=== PATIENT | male | born 1985 | race Caucasian/White ===

== ENCOUNTER 2021-04-04 08:34 | Emergency (ER) | payer SELFPAY ==
[~2021-04-04] VITALS: Ht 193 cm; Wt 90.7 kg
[2021-04-04] MEDS ORDERED: FAMOTIDINE. 20 MG/2 ML VIAL IV ONE ×2 (08:45→08:57)
[2021-04-04] MEDS ORDERED: ONDANSETRON 4 MG/2 ML VIAL IV ONE ×2 (08:45→09:30)
[2021-04-04] MEDS ORDERED: IV NORMAL SALINE 1000 ML BAG IV ONE (08:45)
[2021-04-04] MEDS ORDERED: KETOROLAC TROMETHAMINE 15 MG INJ IVP ONE (08:45)
[2021-04-04] MEDS ORDERED: ONDANSETRON 4 MG/2 ML VIAL ONE ×2 (08:56→09:27)
[2021-04-04] MEDS ORDERED: KETOROLAC TROMETHAMINE 15 MG INJ ONE (08:56)
--- NOTE | 2021-04-04 09:01 | NUR ---
Pt brought down to CT via gurney accompanied by fiberglass autobody repairer. Pt NAD VSS RA, Pt reports intolerable pain. pt reports nausea, no emesis. able to change into hospital gown, ambulatory with stable gait. SRx2 up. bed at lowest position.
--- NOTE | 2021-04-04 09:15 | NUR ---
Pt is back from CT via gurney, accompanied by waste management recycling technician. NAD VSS RA resting comfortably with IVF infusing well to LAC G20 srx2 up with bed at lowest position monitored accordingly
[2021-04-04 09:19] LABS: BASOPHILS % (AUTO) 0.5 % (0.0-2.0); EOSINOPHILS # (AUTO) 0.1 K/uL (0.0-0.7); HEMOGLOBIN 13.9 g/dL (12.5-16.3); LYMPHOCYTES # (AUTO) 1.7 K/uL (20.0-40.0); LYMPHOCYTES % (AUTO) 26.5 % (20.5-51.5); MEAN CORPUSCULAR HEMOGLOBIN 27.7 uug (23.8-33.4); MEAN CORPUSCULAR HGB CONC 33 g/dL (32.5-36.3); MEAN CORPUSCULAR VOLUME 83.5 fL (73.0-96.2); MONOCYTES # (AUTO) 0.4 K/uL (2.0-10.0); MONOCYTES % (AUTO) 6.4 % (0.0-11.0); NEUTROPHILS % (AUTO) 64.6 % (38.5-71.5); PLATELET COUNT (AUTO) 291 K/uL (152-348); RED BLOOD CELL COUNT(AUTO) 5.03 MIL/uL (4.06-5.63); WHITE BLOOD COUNT (AUTO) 6.2 K/uL (3.6-10.2)
[2021-04-04 09:25] LABS: BILIRUBIN,DIRECT 0.1 mg/dL (0.0-0.2); BILIRUBIN,TOTAL 0.4 mg/dL (0.2-1.0); CREATININE 0.9 mg/dL (0.6-1.3); POTASSIUM 4.1 mmol/L (3.5-5.1); TOTAL PROTEIN, SERUM 7.9 g/dL (6.4-8.2)
[2021-04-04] MEDS ORDERED: MORPHINE SULFATE 4 MG/1 ML DISP.SYRIN ONE (09:27)
[2021-04-04] MEDS ORDERED: MORPHINE SULFATE 4 MG/1 ML DISP.SYRIN IV ONE (09:30)
[2021-04-04] MEDS ORDERED: TAMSULOSIN HCL 0.4 MG CAP.SR.24H PO ONE (10:00)
[2021-04-04 10:08] LABS: *BILIRUBIN,URIN NEGATIVE (NEGATIVE); *BLOOD, URINE 2+ (NEGATIVE); *CLARITY,URINE SLIGHTLY CLOUDY (CLEAR); *COLOR,URINE YELLOW (YELLOW); *KETONES,URINE NEGATIVE (NEGATIVE); *UROBILINOGEN,URINE 0.2 E.U./dl (NORMAL); LEUKOCYTE ESTERASE ,URINE NEGATIVE (NEGATIVE); NITRITE, URINE NEGATIVE (NEGATIVE); PH,URINE 5.5 (5.0-8.0); UGLUCOSE NEGATIVE (NEGATIVE)
[2021-04-04] MEDS ORDERED: TAMSULOSIN HCL 0.4 MG CAP.SR.24H ONE (10:12)
[2021-04-04 10:18] LABS: MUCUS,URINE MODERATE /LPF (0-FEW)
[2021-04-04 10:22] LABS: BACTERIA,URINE FEW /HPF (NONE SEEN); SQUAMOUS EPITHELIAL CELL,UR NONE SEEN /HPF (NONE SEEN); WBC,URINE NONE SEEN /HPF (0-3)
[2021-04-04] MEDS ORDERED: ONDA4TAB5 PO (10:26)
[2021-04-04] MEDS ORDERED: TAMS-3 PO (10:26)
[2021-04-04] MEDS ORDERED: IBUP-1955 PO (10:26)
--- NOTE | 2021-04-04 10:34 | NUR ---
pt is calm and comfortable. Patient discharged to home in stable condition. Written and verbal after care instructions given. Patient verbalizes understanding of instructions. Stressed follow up or return to ER for worsening s/s. REmoved IV saline lock. dressed.
[2021-04-04 10:35] VITALS: BP 130/99
== END 2021-04-04 10:39 | disposition home or self-care (01) ==
LOC: ER 08:34
DX: N20.1 Calculus of ureter (principal); R11.2 Nausea with vomiting, unspecified; Z87.442 Personal history of urinary calculi; K50.90 Crohn's disease, unspecified, without complications; R31.29 Other microscopic hematuria; R00.0 Tachycardia, unspecified; R03.0 Elevated blood-pressure reading, without diagnosis of hypertension; F17.210 Nicotine dependence, cigarettes, uncomplicated
CPT/HCPCS: 36415; 74176; 80048; 80076; 81001; 83690; 85025; 96361; 96374; 96375; 99284; J1885; J2270; J2405 ×2; J3490; A4663; J7030